=== PATIENT | female | born 1965 | race Caucasian/White ===

== ENCOUNTER 2017-06-11 18:26 | Observation (INO) | payer SELFPAY ==
[2017-06-11] MEDS ORDERED: Sodium Chloride 0.9% 10 ML Syringe FLUSH PRN (19:39)
[2017-06-11] MEDS ORDERED: cefTRIAXone 2 GM Vial IVPUSH ONE (20:43)
[2017-06-11] MEDS ORDERED: Sodium Chloride 0.9% 1,000 ML IV ONE (20:44)
[2017-06-11 20:51] LABS: CHLORIDE,CL 95 mmol/L (98-107); SODIUM,NA 130 mmol/L (136-145)
[2017-06-11] MEDS ORDERED: Lactated Ringers 1,000 ML IV SCH (21:30)
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
[2017-06-11] MEDS: Nicotine 14 MG/24 Hr Patch TRDERM SCH (22:36)
[2017-06-12] MEDS ORDERED: Acetaminophen 500 MG Tab PO PRN (00:25)
[2017-06-12] MEDS: Lactated Ringers 1,000 ML IV SCH ×2 (00:43→07:26)
[2017-06-12] MEDS ORDERED: HYDROmorphone 1 MG/ML Syringe IVPUSH ONE (02:03)
[2017-06-12] MEDS ORDERED: Magnesium Hydroxide 400 MG/5 ML Susp 30 ML Cup PO PRN (03:41)
[2017-06-12] MEDS ORDERED: Acetaminophen/HYDROcodone 325-10 MG Tab PO PRN (05:30)
[2017-06-12] MEDS: Nicotine 14 MG/24 Hr Patch TRDERM SCH (07:25)
== END 2017-06-12 09:50 | disposition left against medical advice (07) ==
LOC: VM.ED 18:26 → VM.MS 21:00
PROVIDERS: ADMIT Physician Assistant; ATTEND Physician Assistant
DX: N10 Acute pyelonephritis (principal); F17.210 Nicotine dependence, cigarettes, uncomplicated
CPT/HCPCS: 36415; 71046; 80053; 80305; 81001; 83605; 83735; 84100; 84484; 85025; 85610; 86140; 87040; 87186; 96361; 96374; 96375; 99284; A9270-GY; G0378; G0480; J0696; J1170; J7030; J7120